=== PATIENT | male | born 1955 | race Caucasian/White ===

== ENCOUNTER 2019-03-19 07:31 | Outpatient (CLI) | payer OTHER | END 2019-03-19 07:35 | disposition home or self-care (01) | LOC: MRI 07:31 | DX: S93.402A Sprain of unspecified ligament of left ankle, initial encounter (principal) | CPT/HCPCS: 73718 ==

== ENCOUNTER → 2020-08-16 | Outpatient (CLI) | payer OTHER | END | disposition home or self-care (01) | LOC: SONOGRAMA 12:10 → MAMO-SONO 12:15 | PROVIDERS: ATTEND Physical Medicine & Rehabilitation | DX: S66.891A Other injury of other specified muscles, fascia and tendons at wrist and hand level, right hand, initial encounter (principal); M79.641 Pain in right hand; M25.532 Pain in left wrist; M25.531 Pain in right wrist ==

== ENCOUNTER 2020-12-14 09:40 | Outpatient (CLI) | payer OTHER | END 2020-12-14 14:54 | disposition home or self-care (01) | LOC: RAD 09:40 → MRI 12-21 09:15 | PROVIDERS: ATTEND Orthopaedic Surgery Hand Surgery | DX: S63.612A Unspecified sprain of right middle finger, initial encounter (principal) | CPT/HCPCS: 73218 ==